=== PATIENT | female | born 1980 | race American Indian/Alaskan Native ===

== ENCOUNTER 2018-12-13 22:37 | Emergency (ER) | payer OTHER ==
[~2018-12-13] VITALS: Ht 157.5 cm; Wt 95.3 kg
[2018-12-13 22:37] VITALS: BP 111/67
--- NOTE | 2018-12-13 22:37 | NUR ---
ARRIVAL PATIENT PRESENTS VIA AMBULANCE WITH COMPLAINTS OF ANXIETY. REPORTS THAT SHE "WOKE UP FROM HER SLEEP" WITH ANXIETY. REPORTS NAUSEA AND GENERALIZED PAIN AT THIS TIME. HX ANXIETY, PANIC ATTACKS AND ALSO REPORTS THAT SHE WAS DIAGNOSED WITH ANKYLOSING SPONDYLITIS TWO WEEKS AGO. PATIENT AAO x4. BREATHING EVEN, UNLABORED. NO SIGNS OF DISTRESS NOTED. VSS. MD NILDA NOTIFIED.
[2018-12-13] MEDS ORDERED: ZOFRAN ODT SL STA (23:24)
--- NOTE | 2018-12-13 23:26 | ER.PDOC ---
General Chief Complaint: General Complaint Stated Complaint: ANXIETY TRAVEL OUT OF US: No Time seen by MD: 23:25 Source: patient Exam Limitations: no limitations History of Present Illness Initial Comments Anxiety and feeling nauseated. Severity: mild Associated Symptoms: denies symptoms Allergies: Uncoded Allergies: STRAWBERRIES (Allergy, Mild, HIVES, 10/26/15) Past Medical History Medical History: other Surgical History: cholecystectomy Social History Smoking: non-smoker Alcohol Use: none Drug Use: none Review of Systems Constitutional: no symptoms reported Respiratory: no symptoms reported Cardiovascular: no symptoms reported Gastrointestinal: no symptoms reported Musculoskeletal: no symptoms reported Psychiatric/Neurological: see HPI All Other Systems: Reviewed and Negative Physical Exam General Appearance: No Apparent Distress, WD/WN Neck: Non-Tender Respiratory: chest non-tender, lungs clear, normal breath sounds CVS: reg rate & rhythm, no murmur, no gallop, pulses nml, nml capillary refill Gastrointestinal: Normal Bowel Sounds, No Organomegaly, No Pulsatile Mass, Non Tender Back: Normal Inspection Extremities: Normal Range of Motion Neurologic/Psychiatric: personal care aide II-XII NML as Tested Results/Orders Results/Orders Orders - MAREK MUNGUIA MD Cbc With Auto Diff (12/13/18 23:24) Basic Metabolic Panel (12/13/18 23:24) Ondansetron (Zofran Odt) (12/13/18 23:24) Ondansetron (Zofran Odt) (12/13/18 23:27) Vital Signs Date Time Temp Pulse Resp B/P (MAP) Pulse Ox O2 Delivery O2 Flow Rate FiO2 12/13/18 22:39 79 18 98 Room Air 12/13/18 22:39 98.0 79 18 12/13/18 22:37 98.0 79 18 111/67 (82) 98 Room Air Administered Medications Medications (Trade) Dose Ordered Sig/Eugene Route PRN Reason Start Time Stop Time Status Last Admin Dose Admin Ondansetron HCl (Zofran Odt) 4 mg STAT STAT SL 12/13/18 23:24 12/13/18 23:25 DC 12/13/18 23:32 4 MG Laboratory Tests Test 12/13/18 23:30 White Blood Count 12.0 10^3/uL (4.5-11.0) H Red Blood Count 4.65 10^6/uL (4.00-5.20) Hemoglobin 13.1 g/dL (12.0-15.0) Hematocrit 38.9 % (36.0-46.0) Mean Corpuscular Volume 83.7 fL (78-100) Mean Corpuscular Hemoglobin 28.2 pg (26-34) Mean Corpuscular Hemoglobin Concent 33.7 g/dL (33-37) Red Cell Distribution Width 14.7 % (11.5-14.5) H Platelet Count 389 10^3/uL (150-400) Mean Platelet Volume 10.0 fL (7.8-11.0) Neutrophils (%) (Auto) 70.5 % (41.0-85.0) Lymphocytes (%) (Auto) 23.1 % (24.0-44.0) L Monocytes (%) (Auto) 5.4 % (5.0-12.0) Neutrophils # (Auto) 8.4 10^3/uL (1.8-7.7) H Lymphocytes # (Auto) 2.8 10^3/uL (1.0-4.8) Monocytes # (Auto) 0.7 10^3/uL (0.3-0.8) Absolute Immature Granulocyte (auto 0.02 10^3 u/L (0-2) Immature Granulocytes % 0.20 % (0.00-0.50) Eosinophils % 0.6 % (0.0-5.0) Basophils % 0.2 % (0.0-0.2) Basophils # 0.0 10^3/uL (0.0-0.1) Eosinophil Count 0.1 10^3/uL (0.0-0.2) Sodium Level 138 mmol/L (132-145) Potassium Level 4.1 mmol/L (3.6-5.2) Chloride Level 104.0 mmol/L (96-109) Carbon Dioxide Level 22.4 mmol/L (20.0-32) Glucose Level 106 mg/dL (70-110) Blood Urea Nitrogen 12 mg/dL (7-18) Creatinine 0.70 mg/dL (0.59-1.40) Calcium Level 9.4 mg/dL (8.4-10.5) Anion Gap 15.7 Estimated GFR () 113.9 (>/=60) BUN/Creatinine Ratio 17.0 Course Sepsis Screening Results: Posi: POSITIVE SEPSIS RISK Duration or Total Time Spent w: 20 Vitals & review Data Vital Sign - Last 24 Hours 12/13/18 12/13/18 12/13/18 22:37 22:39 22:39 Temp 98.0 98.0 Pulse 79 79 79 Resp 18 18 18 B/P (MAP) 111/67 (82) Pulse Ox 98 98 O2 Delivery Room Air Room Air Laboratory Tests Test 12/13/18 23:30 White Blood Count 12.0 10^3/uL Red Blood Count 4.65 10^6/uL Hemoglobin 13.1 g/dL Hematocrit 38.9 % Mean Corpuscular Volume 83.7 fL Mean Corpuscular Hemoglobin 28.2 pg Mean Corpuscular Hemoglobin Concent 33.7 g/dL Red Cell Distribution Width 14.7 % Platelet Count 389 10^3/uL Mean Platelet Volume 10.0 fL Neutrophils (%) (Auto) 70.5 % Lymphocytes (%) (Auto) 23.1 % Monocytes (%) (Auto) 5.4 % Neutrophils # (Auto) 8.4 10^3/uL Lymphocytes # (Auto) 2.8 10^3/uL Monocytes # (Auto) 0.7 10^3/uL Absolute Immature Granulocyte (auto 0.02 10^3 u/L Immature Granulocytes % 0.20 % Eosinophils % 0.6 % Basophils % 0.2 % Basophils # 0.0 10^3/uL Eosinophil Count 0.1 10^3/uL Sodium Level 138 mmol/L Potassium Level 4.1 mmol/L Chloride Level 104.0 mmol/L Carbon Dioxide Level 22.4 mmol/L Glucose Level 106 mg/dL Blood Urea Nitrogen 12 mg/dL Creatinine 0.70 mg/dL Calcium Level 9.4 mg/dL Anion Gap 15.7 Estimated GFR () 113.9 BUN/Creatinine Ratio 17.0 Sepsis Infection Criteria Pres: None O2 Sat by Pulse Oximetry: 98 Departure Time of Disposition: 23:54 Disposition: 01 HOME, SELF-CARE Impression: Primary Impression: Anxiety Condition: Improved Referrals: PCP,UNKNOWN (PCP) PRIMARY CARE PROVIDER Additional Instructions: F/U with your PCP in 2-3 days Duration or Time Spent with Pa: 45 mins MAREK MUNGUIA MD Dec 13, 2018 23:26
[2018-12-13] MEDS ORDERED: ZOFRAN ODT ONE (23:27)
[2018-12-13 23:38] LABS: BASOPHIL % 0.2 % (0.0-0.2); EOSINOPHIL # 0.1 10^3/uL (0.0-0.2); EOSINOPHIL % 0.6 % (0.0-5.0); HEMOGLOBIN 13.1 g/dL (12.0-15.0); LYMPHOCYTES # 2.8 10^3/uL (1.0-4.8); LYMPHOCYTES % 23.1 % (24.0-44.0); MEAN CELL HGB 28.2 pg (26-34); MEAN CELL HGB CONCENTRATION 33.7 g/dL (33-37); MEAN CORP VOLUME 83.7 fL (78-100); MONOCYTES # 0.7 10^3/uL (0.3-0.8); MONOCYTES % 5.4 % (5.0-12.0); NEUTROPHIL # 8.4 10^3/uL (1.8-7.7); NEUTROPHILS % 70.5 % (41.0-85.0); RED CELL DISTRIBUTION WIDTH 14.7 % (11.5-14.5)
[2018-12-13 23:47] LABS: CALCIUM 9.4 mg/dL (8.4-10.5); CARBON DIOXIDE 22.4 mmol/L (20.0-32)
[2018-12-14 00:10] VITALS: BP 118/68
== END 2018-12-14 00:06 | disposition home or self-care (01) ==
LOC: ER 22:37 → EDBD 22:37 → ER 12-14 00:06
DX: F41.9 Anxiety disorder, unspecified (principal); Z90.49 Acquired absence of other specified parts of digestive tract; Z79.899 Other long term (current) drug therapy; Z91.018 Allergy to other foods
CPT/HCPCS: 36415; 80048; 85025; 99284; Q0162

== ENCOUNTER 2019-05-06 08:59 | Emergency (ER) | payer OTHER ==
[~2019-05-06] VITALS: Ht 157.5 cm; Wt 95.3 kg
[2019-05-06 09:23] VITALS: BP 128/80
[2019-05-06 09:24] VITALS: BP 128/80
--- NOTE | 2019-05-06 09:30 | ER.PDOC ---
General Chief Complaint: General Complaint Stated Complaint: RESPIRATORY PROBLEMS TRAVEL OUT OF US: No Time seen by MD: 09:26 Source: patient Exam Limitations: no limitations History of Present Illness Initial Comments SOB only at night while sleeping, lightheaded, dizziness, wakes up many times while asleep for Months worse in the past 3 days. Takes 5mg of Buspar and thinks it is not working. Severity: moderate Associated Symptoms: headaches Allergies: Uncoded Allergies: STRAWBERRIES (Allergy, Mild, HIVES, 10/26/15) Past Medical History Medical History: other (migraine) Surgical History: cholecystectomy Social History Alcohol Use: none Drug Use: none Review of Systems Constitutional: no symptoms reported EENTM: see HPI Respiratory: see HPI Cardiovascular: no symptoms reported Gastrointestinal: no symptoms reported Genitourinary: no symptoms reported Musculoskeletal: no symptoms reported All Other Systems: Reviewed and Negative Physical Exam General Appearance: Anxious EENT: eyes nml inspection, nml ENT inspection, pharynx nml Respiratory: chest non-tender, lungs clear, normal breath sounds, no respiratory distress, no accessory muscle use CVS: reg rate & rhythm, no murmur, no gallop, pulses nml, nml capillary refill Gastrointestinal: Normal Bowel Sounds, No Organomegaly, No Pulsatile Mass, Non Tender Back: Normal Inspection Extremities: Normal Range of Motion Neurologic/Psychiatric: geologic technician II-XII NML as Tested Skin: Normal Color Results/Orders Results/Orders Orders - MAREK MUNGUIA MD Cbc With Auto Diff (05/06/19 09:25) Comprehensive Metabolic Panel (05/06/19 09:25) Creatine Kinase (05/06/19 09:25) Creatine Kinase Mb (05/06/19 09:25) Troponin I (05/06/19 09:25) Probnp B-Type Health Services Manager (05/06/19 09:25) D-Dimer (05/06/19 09:25) Xr Chest 1v (05/06/19 09:25) Ekg-Routine (05/06/19 09:25) Ct Head Wo Contrast (05/06/19 09:25) Ketorolac Tromethamine (Toradol) (05/06/19 09:54) Ketorolac Tromethamine (Toradol) (05/06/19 09:55) Vital Signs Date Time Temp Pulse Resp B/P (MAP) Pulse Ox O2 Delivery O2 Flow Rate FiO2 05/06/19 09:24 98.2 88 20 128/80 (96) 97 Room Air 05/06/19 09:23 98.2 88 20 05/06/19 09:15 98.2 88 20 97 Administered Medications Medications (Trade) Dose Ordered Sig/[place] Route PRN Reason Start Time Stop Time Status Last Admin Dose Admin Ketorolac Tromethamine (Toradol) 60 mg STAT STAT IM 05/06/19 09:54 05/06/19 09:55 DC 05/06/19 09:58 60 MG Laboratory Tests Test 05/06/19 09:32 White Blood Count 9.7 10^3/uL (4.5-11.0) Red Blood Count 4.66 10^6/uL (4.00-5.20) Hemoglobin 13.3 g/dL (12.0-15.0) Hematocrit 39.9 % (36.0-46.0) Mean Corpuscular Volume 85.6 fL (78-100) Mean Corpuscular Hemoglobin 28.5 pg (26-34) Mean Corpuscular Hemoglobin Concent 33.3 g/dL (33-37) Red Cell Distribution Width 14.2 % (11.5-14.5) Platelet Count 408 10^3/uL (150-400) H Mean Platelet Volume 9.5 fL (7.8-11.0) Neutrophils (%) (Auto) 73.2 % (41.0-85.0) Lymphocytes (%) (Auto) 18.4 % (24.0-44.0) L Monocytes (%) (Auto) 5.4 % (5.0-12.0) Neutrophils # (Auto) 7.1 10^3/uL (1.8-7.7) Lymphocytes # (Auto) 1.8 10^3/uL (1.0-4.8) Monocytes # (Auto) 0.5 10^3/uL (0.3-0.8) Absolute Immature Granulocyte (auto 0.03 10^3 u/L (0-2) Absolute Eosinophils (auto) 0.2 10^3/uL (0.0-0.2) Immature Granulocytes % 0.30 % (0.00-0.50) Eosinophils % 2.3 % (0.0-5.0) Basophils % 0.4 % (0.0-0.2) H Basophils # 0.0 10^3/uL (0.0-0.1) D-Dimer 0.83 mg/L (0.19-0.49) *H Sodium Level 140 mmol/L (132-145) Potassium Level 4.0 mmol/L (3.6-5.2) Chloride Level 104.0 mmol/L (96-109) Carbon Dioxide Level 24.8 mmol/L (20.0-32) Anion Gap 15.2 Blood Urea Nitrogen 10 mg/dL (7-18) Creatinine 0.66 mg/dL (0.59-1.40) Estimated GFR () 121.9 (>/=60) BUN/Creatinine Ratio 15.0 Glucose Level 101 mg/dL (70-110) Calcium Level 8.6 mg/dL (8.4-10.5) Total Bilirubin 0.4 mg/dL (0.2-1.0) Aspartate Amino Transferase (AST) 14 U/L (0-35) Alanine Aminotransferase (ALT) 28 U/L (12-78) Alkaline Phosphatase 93 U/L (50-136) Total Creatine Kinase 45 U/L (26-192) Creatine Kinase MB < 0.5 ng/mL (0.5-3.6) L Troponin I < 0.02 ng/mL (0.00-0.05) Pro-B-Type Natriuretic Peptide 34 pg/mL (0-125) Total Protein 7.6 g/dL (6.4-8.2) Albumin 3.6 g/dL (3.4-5.0) Globulin 4.0 Progress Progress Migraine feels better with Toradol shot. EKG/XRAY/CT/US EKG: NSR XRAY: chest (No active disease) CT Comments: No acute intracranial abnormality Course Sepsis Screening Results: Posi: POSITIVE SEPSIS RISK Duration or Total Time Spent w: 45 mins Vitals & review Data Vital Sign - Last 24 Hours 05/06/19 05/06/19 05/06/19 09:15 09:23 09:24 Temp 98.2 98.2 98.2 Pulse 88 88 88 Resp 20 20 20 B/P (MAP) 128/80 (96) Pulse Ox 97 97 O2 Delivery Room Air Laboratory Tests Test 1/1/20 09:32 White Blood Count 9.7 10^3/uL Red Blood Count 4.66 10^6/uL Hemoglobin 13.3 g/dL Hematocrit 39.9 % Mean Corpuscular Volume 85.6 fL Mean Corpuscular Hemoglobin 28.5 pg Mean Corpuscular Hemoglobin Concent 33.3 g/dL Red Cell Distribution Width 14.2 % Platelet Count 408 10^3/uL Mean Platelet Volume 9.5 fL Neutrophils (%) (Auto) 73.2 % Lymphocytes (%) (Auto) 18.4 % Monocytes (%) (Auto) 5.4 % Neutrophils # (Auto) 7.1 10^3/uL Lymphocytes # (Auto) 1.8 10^3/uL Monocytes # (Auto) 0.5 10^3/uL Absolute Immature Granulocyte (auto 0.03 10^3 u/L Absolute Eosinophils (auto) 0.2 10^3/uL Immature Granulocytes % 0.30 % Eosinophils % 2.3 % Basophils % 0.4 % Basophils # 0.0 10^3/uL D-Dimer 0.83 mg/L Sodium Level 140 mmol/L Potassium Level 4.0 mmol/L Chloride Level 104.0 mmol/L Carbon Dioxide Level 24.8 mmol/L Anion Gap 15.2 Blood Urea Nitrogen 10 mg/dL Creatinine 0.66 mg/dL Estimated GFR () 121.9 BUN/Creatinine Ratio 15.0 Glucose Level 101 mg/dL Calcium Level 8.6 mg/dL Total Bilirubin 0.4 mg/dL Aspartate Amino Transf (AST/SGOT) 14 U/L Alanine Aminotransferase (ALT/SGPT) 28 U/L Alkaline Phosphatase 93 U/L Total Creatine Kinase 45 U/L Creatine Kinase MB < 0.5 ng/mL Troponin I < 0.02 ng/mL Pro-B-Type Natriuretic Peptide 34 pg/mL Total Protein 7.6 g/dL Albumin 3.6 g/dL Globulin 4.0 Sepsis Infection Criteria Pres: None O2 Sat by Pulse Oximetry: 97 Departure Time of Disposition: 11:09 Disposition: 01 HOME, SELF-CARE Impression: Primary Impression: Anxiety Additional Impression: Migraine Condition: Stable Referrals: PCP,UNKNOWN (PCP) PRIMARY CARE PROVIDER Additional Instructions: Increase Buspirone to 10mg F/U with your PCP tomorrow Return to ED if worsening symptoms or concerns. Duration or Time Spent with Pa: 45 mind Problem Qualifiers Additional Impression: Migraine Migraine type: unspecified Status migrainosus presence: with status migrainosus Intractability: intractable Qualified Codes: G43.911 - Migraine, unspecified, intractable, with status migrainosus MAREK MUNGUIA MD May 06, 2019 09:30
[2019-05-06 09:37] LABS: BASOPHIL % 0.4 % (0.0-0.2); EOSINOPHIL # 0.2 10^3/uL (0.0-0.2); EOSINOPHIL % 2.3 % (0.0-5.0); LYMPHOCYTES # 1.8 10^3/uL (1.0-4.8); LYMPHOCYTES % 18.4 % (24.0-44.0); MEAN CORP HGB 28.5 pg (26-34); MONOCYTES # 0.5 10^3/uL (0.3-0.8); MONOCYTES % 5.4 % (5.0-12.0); NEUTROPHIL # 7.1 10^3/uL (1.8-7.7); NEUTROPHILS % 73.2 % (41.0-85.0); RED CELL DISTRIBUTION WIDTH 14.2 % (11.5-14.5)
--- NOTE | 2019-05-06 09:51 | NUR ---
CRITICAL LAB D-DIMER-0.83. REPORTED TO DR. JARA
[2019-05-06] MEDS ORDERED: TORADOL IM STA (09:54)
--- NOTE | 2019-05-06 09:54 | PCM.EKG ---
[facility] Test Date: 2019-05-06 Test Time: 09:50:54 Pat Name: KATY ACHARYA Department: Room: Gender: F Geriatrician: ELIO : 1980 Requested By: MAREK MUNGUIA Order Number: [id number] Reading MD: Marek MUNGUIA Measurements Intervals [place] Rate: 80 P: 70 [place]: 161 QRS: 72 QRSD: 100 T: 63 QT: 383 QTc: 442 Interpretive Statements Sinus rhythm RSR' in V1 or V2, right VCD or RVH Compared to ECG 06/30/2018 17:52:38 Right ventricular hypertrophy now present RSR' in V1 or V2 now present Electronically Signed On 05-07-2019 5:17:10 PALS SPECIALIST by Marek MUNGUIA Please click the below link to view image of tracing.
[2019-05-06] MEDS ORDERED: TORADOL ONE (09:55)
[2019-05-06 10:04] LABS: ALANINE AMINOTRANSFERASE(ML) 28 U/L (12-78); ALKALINE PHOSPHATASE 93 U/L (50-136); ASPARTATE AMINO TRANSFERASE 14 U/L (0-35); CALCIUM 8.6 mg/dL (8.4-10.5); CARBON DIOXIDE 24.8 mmol/L (20.0-32); GLUCOSE 101 mg/dL (70-110)
--- NOTE | 2019-05-06 10:05 | DIREP ---
PROCEDURE:CT HEAD OR BRAIN W/O CONTRAST COMPARISON:None. INDICATIONS:Dizziness TECHNIQUE:CT images were created without intravenous contrast. FINDINGS: VENTRICLES: Negative. CEREBRUM: Negative. CEREBELLUM: Negative. BRAINSTEM: Negative. BASAL CISTERNS: Negative. SKULL: Negative. SINUSES: Negative. OTHER: None. CONCLUSION: 1. There is no CT evidence of intracranial mass, hemorrhage, or acute infarct. Dictated by: Amaury Simons M.D. on 05/06/2019 at 10:03 AM
--- NOTE | 2019-05-06 10:25 | DIREP ---
PROCEDURE:CHEST 1 VIEW COMPARISON:CR, CHEST 2 VIEW, 07/29/2011, 03:47 AM. INDICATIONS:SOB FINDINGS: LUNGS/PLEURA:Lungs are clear of focal consolidation. No evidence of pleural effusion. VASCULATURE:Unremarkable pulmonary vasculature. CARDIAC:No cardiac silhouette abnormality or cardiomegaly. WANDA/MEDIASTINUM:No visible mass or adenopathy. BONES:No acute fracture. OTHER:No additional findings. CONCLUSION: 1. No acute cardiopulmonary changes. Dictated by: Amaury Simons M.D. on 05/06/2019 at 10:23 AM
[2019-05-06 10:30] VITALS: BP 130/84
[2019-05-06 11:15] VITALS: BP 118/80
== END 2019-05-06 11:19 | disposition home or self-care (01) ==
LOC: ER 08:59
DX: G43.911 Migraine, unspecified, intractable, with status migrainosus (principal); F41.9 Anxiety disorder, unspecified; Z79.1 Long term (current) use of non-steroidal anti-inflammatories (NSAID); Z90.49 Acquired absence of other specified parts of digestive tract
CPT/HCPCS: 36415; 70450; 71045; 80053; 82550; 82553; 83880; 84484; 85025; 85379; 93005; 96372; 99285; J1885

== ENCOUNTER 2019-05-26 15:04 | Emergency (ER) | payer OTHER ==
[~2019-05-26] VITALS: Ht 157.5 cm; Wt 93.0 kg
[2019-05-26 15:09] VITALS: BP 123/73
--- NOTE | 2019-05-26 16:04 | ER.PDOC ---
General Chief Complaint: Syncope Stated Complaint: DIZZINESS,PASSED OUT Time seen by MD: 15:56 Source: patient Exam Limitations: no limitations History of Present Illness Initial Comments Dizziness and feeling shaky in her whole body on and off for for 3 Months. No chest pain or SOB. Patient says she passed out at home earlier today. She drove herself to the ED. Her PCP told her that she will switch her Buspirone to Zoloft because it does not seem to be working. Timing/Prior Episodes: single episode today Symptoms Prior to Episode: none Precipitating Factors: sitting Loss of Consciousness: No Loss of Consciousness Location of Injury: None Current Symptoms: dizziness Prior symptoms/Treatment: Similar symptoms previous Allergies: Uncoded Allergies: STRAWBERRIES (Allergy, Mild, HIVES, 10/26/15) Home Meds Reported Medications Metoprolol Succinate (METOPROLOL SUCCINATE) 25 Mg Tab.er.24h, 0.5 TAB PO DAILY, #30 TAB 5 Refills 05/26/19 Past Medical History Medical History: other Surgical History: cholecystectomy Social History Alcohol Use: none Drug Use: none Review of Systems Constitutional: no symptoms reported EENTM: no symptoms reported Respiratory: no symptoms reported Cardiovascular: no symptoms reported Gastrointestinal: no symptoms reported Psychiatric/Neurological: see HPI All Other Systems: Reviewed and Negative Physical Exam General Appearance: No Apparent Distress, Anxious HEENT: PERRL/EOMI Neck: Non-Tender, Full Range of Motion, Supple, Normal Inspection Cardiovascular/Respiratory: Regular Rate, Rhythm, No M/R/G, Normal Peripheral Pulses, No JVD, Normal Breath Sounds, No Respiratory Distress Gastrointestinal: Normal Bowel Sounds, No Organomegaly, No Pulsatile Mass, Non Tender, Soft Extremities: Normal Range of Motion, Non-Tender, Normal Inspection, No Pedal Edema, No Calf Tenderness, Normal Capillary Refill Psychiatric: Alert, Oriented x 3 Cranial Nerves: Normal Hearing, Normal Speech, PERRL Motor/Sensory: No Motor Deficit, No Sensory Deficit, No Pronator Drift, Negative Babinski's Sign Skin: Normal Color, Warm/Dry Results/Orders Results/Orders Orders - MAREK MUNGUIA MD Cbc With Auto Diff (05/26/19 15:54) Comprehensive Metabolic Panel (05/26/19 15:54) Creatine Kinase (05/26/19 15:54) Xr Chest 1v (05/26/19 15:54) Ct Head Wo Contrast (05/26/19 15:54) Urinalysis (05/26/19 15:54) Ekg-Routine (05/26/19 15:54) Troponin I (05/26/19 15:54) Hcg Urine (05/26/19 16:16) Drug Scrn Med W Confirmation (05/26/19 16:16) Bedside Glucose (05/26/19 16:24) Vital Signs Date Time Temp Pulse Resp B/P (MAP) Pulse Ox O2 Delivery O2 Flow Rate FiO2 05/26/19 15:09 98.8 89 23 05/26/19 15:09 98.8 89 23 99 Laboratory Tests Test 05/26/19 15:30 05/26/19 16:07 05/26/19 16:16 05/26/19 16:24 White Blood Count 11.6 10^3/uL (4.5-11.0) H Red Blood Count 4.48 10^6/uL (4.00-5.20) Hemoglobin 12.6 g/dL (12.0-15.0) Hematocrit 37.6 % (36.0-46.0) Mean Corpuscular Volume 83.9 fL (78-100) Mean Corpuscular Hemoglobin 28.1 pg (26-34) Mean Corpuscular Hemoglobin Concent 33.5 g/dL (33-36.5) Red Cell Distribution Width 13.8 % (11.5-14.5) Platelet Count 432 10^3/uL (150-400) H Mean Platelet Volume 9.9 fL (7.8-11.0) Neutrophils (%) (Auto) 70.6 % (41.0-85.0) Lymphocytes (%) (Auto) 24.7 % (24.0-44.0) Monocytes (%) (Auto) 4.0 % (5.0-12.0) L Neutrophils # (Auto) 8.2 10^3/uL (1.8-7.7) H Lymphocytes # (Auto) 2.86 10^3/uL1 (1.0-4.8) Monocytes # (Auto) 0.5 10^3/uL (0.3-0.8) Absolute Immature Granulocyte (auto 0.02 10^3 u/L (0-2) Absolute Eosinophils (auto) 0.0 10^3/uL (0.0-0.2) Immature Granulocytes % 0.20 % (0.00-0.50) Eosinophils % 0.3 % (0.0-5.0) Basophils % 0.2 % (0.0-0.2) Basophils # 0.0 10^3/uL (0.0-0.1) Sodium Level 128 mmol/L (132-145) #L Potassium Level 3.6 mmol/L (3.6-5.2) Chloride Level 95.0 mmol/L (96-109) L Carbon Dioxide Level 23.7 mmol/L (20.0-32) Anion Gap 12.9 Blood Urea Nitrogen 9 mg/dL (7-18) Creatinine 0.74 mg/dL (0.59-1.40) Estimated GFR () 106.9 (>/=60) Est GFR (CKD-EPI)(Non-Afr Pakistani) 88.3 (>/=60) BUN/Creatinine Ratio 12.0 Glucose Level 91 mg/dL (70-110) Calcium Level 8.3 mg/dL (8.4-10.5) L Total Bilirubin 0.3 mg/dL (0.2-1.0) Aspartate Amino Transferase (AST) 6 U/L (0-35) Alanine Aminotransferase (ALT) 28 U/L (12-78) Alkaline Phosphatase 78 U/L (50-136) Total Creatine Kinase 76 U/L (26-192) Troponin I < 0.02 ng/mL (0.00-0.05) Total Protein 7.6 g/dL (6.4-8.2) Albumin 3.6 g/dL (3.4-5.0) Globulin 4.0 Urine Collection Type VOID Urine Color YELLOW (YELLOW) Urine Appearance CLEAR (CLEAR) Urine Bilirubin NEGATIVE MG/DL (NEGATIVE) Urine Ketones 5 mg/dL (NEGATIVE) H Urine Specific [place] 1.000 (1.005-1.035) Urine pH 6.5 (5.0-6.0) Urine Protein NEGATIVE (NEGATIVE) Urine Urobilinogen NORMAL (NEGATIVE) Urine Nitrate NEGATIVE (NEGATIVE) Urine Leukocyte Esterase NEGATIVE (NEGATIVE) Urine Blood NEGATIVE (NEGATIVE) Urine Glucose NORMAL (NEGATIVE) Urine HCG, Qualitative NEGATIVE (NEGATIVE) Urine Opiates Screen NEGATIVE (c/o300ng/mL) Urine Methadone Screen NEGATIVE (c/o300ng/mL) Urine Barbiturates Screen NEGATIVE (c/o200ng/mL) Urine Phencyclidine Screen NEGATIVE (c/o 25ng/mL) Ur Amphetamine/Methamphetamine NEGATIVE (la3015zy/mL) Urine MDMA Screen (Ecstasy) NEGATIVE (c/o300ng/mL) Urine Benzodiazepines Screen NEGATIVE (c/o200ng/mL) Urine Cocaine Metabolite Screen NEGATIVE (c/o300ng/mL) Ur Tetrahydrocannabinol (THC) Scrn NEGATIVE (c/o 50ng/mL) POC Glucose 95 (70 - 110) Progress Progress Discussed results with the patient. She has been drinking a lot of water. I told her to decrease fluid intake to build up her Sodium. She has an appointment with her PCP tomorrow. Departure Time of Disposition: 16:59 Disposition: 01 HOME, SELF-CARE Impression: Primary Impression: Anxiety Additional Impressions: Syncope and collapse Hyponatremia Condition: Stable Referrals: PCP,UNKNOWN (PCP) PRIMARY CARE PROVIDER Additional Instructions: Decrease your consumption of water to build up your Sodium F/U with your PCP tomorrow as scheduled and keep to your appointment Return to ED if worsening symptoms or concerns. Duration or Time Spent with Pa: 60 mins Problem Qualifiers MAREK MUNGUIA MD May 26, 2019 16:04
[2019-05-26 16:06] LABS: BASOPHIL % 0.2 % (0.0-0.2); EOSINOPHIL % 0.3 % (0.0-5.0); LYMPHOCYTES # 2.86 10^3/uL1 (1.0-4.8); LYMPHOCYTES % 24.7 % (24.0-44.0); MEAN CORP HGB 28.1 pg (26-34); MONOCYTES # 0.5 10^3/uL (0.3-0.8); NEUTROPHIL # 8.2 10^3/uL (1.8-7.7); NEUTROPHILS % 70.6 % (41.0-85.0); RED CELL DISTRIBUTION WIDTH 13.8 % (11.5-14.5)
[2019-05-26 16:16] LABS: BILIRUBIN,URINE NEGATIVE (NEGATIVE); UROBILINOGEN,URINE NORMAL (NEGATIVE)
[2019-05-26 16:22] LABS: APPEARANCE,URINE CLEAR (CLEAR); UA COLOR YELLOW (YELLOW)
--- NOTE | 2019-05-26 16:22 | PCM.EKG ---
[facility] Test Date: 2019-05-26 Test Time: 16:17:58 Pat Name: KATY ACHARYA Department: Room: Gender: F Coil Tester: ELIO : 1980 Requested By: MAREK MUNGUIA Order Number: [id number] Reading MD: Marek MUNGUIA Measurements Intervals [place] Rate: 77 P: 59 [place]: 167 QRS: 100 QRSD: 98 T: 59 QT: 373 QTc: 423 Interpretive Statements Sinus rhythm Consider right ventricular hypertrophy Baseline wander in lead(s) I,II,aVR Compared to ECG 05/06/2019 09:50:54 No significant changes Electronically Signed On 05-26-2019 23:22:27 FRENCH EDGE OPERATOR by Marek MUNGUIA Please click the below link to view image of tracing.
--- NOTE | 2019-05-26 16:22 | DIREP ---
PROCEDURE:CHEST 1 VIEW COMPARISON:None. INDICATIONS:Syncope FINDINGS: LUNGS/PLEURA:No significant pulmonary parenchymal abnormalities. No effusions. VASCULATURE:Normal. Unremarkable pulmonary vasculature. CARDIAC:Normal. No cardiac silhouette abnormality or cardiomegaly. MEDIASTINUM:Normal. No visible mass or adenopathy. BONES:Normal. No fracture or visible bony lesion. OTHER:Negative. CONCLUSION:Normal examination. Dictated by: Aly Garcia M.D. on 05/26/2019 at 04:20 PM
--- NOTE | 2019-05-26 16:23 | DIREP ---
PROCEDURE:CT HEAD OR BRAIN W/O CONTRAST COMPARISON:[facility], CT, CT HEAD BRAIN W/O CONTRAST, 05/06/2019, 09:40 AM. INDICATIONS:Syncope TECHNIQUE:CT images were created without intravenous contrast. FINDINGS: VENTRICLES:The ventricles are normal in size and configuration. CEREBRUM:Normal cerebral morphology with appropriate hooker white matter differentiation. CEREBELLUM:Negative. BRAINSTEM:Negative. BASAL CISTERNS:Negative. HEMORRHAGE:No MASS LESION:No ACUTE INFARCT:No SKULL:Normal. SINUSES:Normal. OTHER:None CONCLUSION:Normal examination. Dictated by: Aly Garcia M.D. on 05/26/2019 at 04:21 PM
[2019-05-26 16:26] LABS: ALANINE AMINOTRANSFERASE(ML) 28 U/L (12-78); ALKALINE PHOSPHATASE 78 U/L (50-136); ASPARTATE AMINO TRANSFERASE 6 U/L (0-35); CALCIUM 8.3 mg/dL (8.4-10.5); CARBON DIOXIDE 23.7 mmol/L (20.0-32); GLUCOSE 91 mg/dL (70-110)
[2019-05-26] MEDS ORDERED: METO-236 PO (16:31)
[2019-05-26 16:41] LABS: HCG URINE PREGNANCY NEGATIVE (NEGATIVE)
== END 2019-05-26 17:15 | disposition home or self-care (01) ==
LOC: ER 15:04
DX: F41.9 Anxiety disorder, unspecified (principal); E87.1 Hypo-osmolality and hyponatremia; R55 Syncope and collapse; Z79.899 Other long term (current) drug therapy; Z90.49 Acquired absence of other specified parts of digestive tract
CPT/HCPCS: 36415; 70450; 71045; 80053; 80307; 81002; 81025; 82550; 82948; 84484; 85025; 93005; 99285

== ENCOUNTER 2019-10-08 11:05 | Emergency (ER) | payer OTHER ==
[~2019-10-08] VITALS: Ht 157.5 cm; Wt 102.1 kg
[~2019-10-08 11:05] MED LIST: METO-236 PO
[2019-10-08 11:20] VITALS: BP 130/81
[2019-10-08 11:24] VITALS: BP 130/81
--- NOTE | 2019-10-08 11:25 | NUR ---
ARRIVAL PATIENT ARRIVED TO ED5 AMBULATORY, C/O OF CHEST TENDERNESS TODAY, PATIENT HAS A HISTORY OF TACHYCARDIA AND BECAME WORRIED, SPOKE WITH FRIENDS WHO ARE NURSES AND WAS TOLD SHE NEEDED TO COME TO THE ED FOR EVAL.
--- NOTE | 2019-10-08 11:33 | ER.PDOC ---
General Chief Complaint: Chest Pain-Cardiac Nature Stated Complaint: CHEST PAINS Time seen by MD: 11:33 Source: patient Exam Limitations: no limitations History of Present Illness Severity/Quality: mild Radiation: no radiation Activities at Onset: rest Prior CP/Workup: No Prior Chest Pain, No Prior Cardiac Workup Nitro Today/Relief: No Nitro Taken Today Associated Symptoms: denies symptoms Allergies: Uncoded Allergies: STRAWBERRIES (Allergy, Mild, HIVES, 10/26/15) Home Meds Reported Medications Metoprolol Succinate (METOPROLOL SUCCINATE) 25 Mg Tab.er.24h, 0.5 TAB PO DAILY, #30 TAB 5 Refills 05/26/19 Past Medical History Medical History: other Surgical History: cholecystectomy, Social History Alcohol Use: none Drug Use: none Reviewed Nursing Reviewed: Vital Signs, Abn. Noted All Other Systems: Reviewed and Negative Physical Exam General Appearance: No Apparent Distress, WD/WN HEENT: PERRL/EOMI, Normal ENT Inspection, TMs Normal, Pharynx Normal Neck: Non-Tender, Full Range of Motion, Supple, Normal Inspection Respiratory: normal breath sounds, no respiratory distress, no accessory muscle use, other Cardiovascular: Normal Peripheral Pulses, Regular Rate, Rhythm, No Edema, No Gallop, No JVD, No Murmur Gastrointestinal: Normal Bowel Sounds, No Organomegaly, No Pulsatile Mass, Non Tender, Soft Extremities: Normal Range of Motion, Non-Tender, Normal Inspection, No Pedal Edema, No Calf Tenderness, Normal Capillary Refill 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 (10/08/19 11:34) Helicobacter Pylori (10/08/19 11:34) D-Dimer (10/08/19 11:34) Xr Chest 1v (10/08/19 11:34) Ekg-Routine (10/08/19 11:34) Prednisone (Prednisone) (10/08/19 11:34) Ketorolac Tromethamine (Toradol) (10/08/19 11:34) Ketorolac Tromethamine (Toradol) (10/08/19 11:42) Prednisone (Prednisone) (10/08/19 11:42) Vital Signs Date Time Temp Pulse Resp B/P (MAP) Pulse Ox O2 Delivery O2 Flow Rate FiO2 10/08/19 12:10 98.4 77 16 96 Room Air 10/08/19 11:24 98.4 88 16 96 Room Air 10/08/19 11:20 98.4 88 16 10/08/19 11:20 98.4 88 16 96 Administered Medications Medications (Trade) Dose Ordered Sig/Eugene Route PRN Reason Start Time Stop Time Status Last Admin Dose Admin Ketorolac Tromethamine (Toradol) 30 mg STAT STAT IV 10/08/19 11:34 10/08/19 11:37 DC 10/08/19 11:47 30 MG Prednisone (Prednisone) 40 mg STAT STAT PO 10/08/19 11:34 10/08/19 11:37 DC 10/08/19 11:47 40 MG Laboratory Tests Test 10/08/19 11:18 White Blood Count 10.0 10^3/uL (4.5-11.0) Red Blood Count 4.72 10^6/uL (4.00-5.20) Hemoglobin 13.3 g/dL (12.0-15.0) Hematocrit 39.9 % (36.0-46.0) Mean Corpuscular Volume 84.5 fL (78-100) Mean Corpuscular Hemoglobin 28.2 pg (26-34) Mean Corpuscular Hemoglobin Concent 33.3 g/dL (33-36.5) Red Cell Distribution Width 14.3 % (11.5-14.5) Platelet Count 418 10^3/uL (150-400) H Mean Platelet Volume 9.8 fL (7.8-11.0) Neutrophils (%) (Auto) 66.8 % (41.0-85.0) Lymphocytes (%) (Auto) 27.2 % (24.0-44.0) Monocytes (%) (Auto) 3.8 % (5.0-12.0) L Neutrophils # (Auto) 6.7 10^3/uL (1.8-7.7) Lymphocytes # (Auto) 2.73 10^3/uL1 (1.0-4.8) Monocytes # (Auto) 0.4 10^3/uL (0.3-0.8) Absolute Immature Granulocyte (auto 0.02 10^3 u/L (0-2) Absolute Eosinophils (auto) 0.2 10^3/uL (0.0-0.2) Immature Granulocytes % 0.20 % (0.00-0.50) Eosinophils % 1.8 % (0.0-5.0) Basophils % 0.2 % (0.0-0.2) Basophils # 0.0 10^3/uL (0.0-0.1) Prothrombin Time 9.7 SEC (9.3-11.3) Prothrombin Time INR (Non-Therap) 1.0 Activated Partial Thromboplast Time 22.1 SEC (24.67-30.72) D-Dimer 0.85 mg/L (0.19-0.49) *H Sodium Level 137 mmol/L (132-145) Potassium Level 3.6 mmol/L (3.6-5.2) Chloride Level 103.0 mmol/L (96-109) Carbon Dioxide Level 23.3 mmol/L (20.0-32) Anion Gap 14.3 Blood Urea Nitrogen 14 mg/dL (7-18) Creatinine 0.78 mg/dL (0.59-1.40) Estimated GFR () 100.0 (>/=60) Est GFR (CKD-EPI)(Non-Afr Azerbaijani) 82.7 (>/=60) BUN/Creatinine Ratio 17.0 Glucose Level 164 mg/dL (70-110) H Calcium Level 8.5 mg/dL (8.4-10.5) Total Bilirubin 0.3 mg/dL (0.2-1.0) Aspartate Amino Transferase (AST) 25 U/L (0-35) Alanine Aminotransferase (ALT) 41 U/L (12-78) Alkaline Phosphatase 74 U/L (50-136) Total Creatine Kinase 42 U/L (26-192) Creatine Kinase MB < 0.5 ng/mL (0.5-3.6) L Troponin I < 0.02 ng/mL (0.00-0.05) Pro-B-Type Natriuretic Peptide 9 pg/mL (0-125) Total Protein 7.4 g/dL (6.4-8.2) Albumin 3.1 g/dL (3.4-5.0) L Globulin 4.3 Helicobacter pylori Screen NEGATIVE (NEGATIVE) EKG/XRAY/CT/US EKG: NSR, no ST T wave changes XRAY: chest Departure Time of Disposition: 13:00 Disposition: 01 HOME, SELF-CARE Impression: Primary Impression: Pleurisy Condition: Improved Referrals: PCP,UNKNOWN (PCP) PRIMARY CARE PROVIDER Duration or Time Spent with Pa: 20 m RADHA ACUNA MD Oct 08, 2019 11:33
[2019-10-08] MEDS ORDERED: PREDNISONE PO STA (11:34)
[2019-10-08] MEDS ORDERED: TORADOL IV STA (11:34)
[2019-10-08] MEDS ORDERED: PREDNISONE ONE (11:42)
[2019-10-08] MEDS ORDERED: TORADOL ONE (11:42)
--- NOTE | 2019-10-08 11:44 | PCM.EKG ---
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
[2019-10-08 11:51] LABS: BASOPHIL % 0.2 % (0.0-0.2); EOSINOPHIL # 0.2 10^3/uL (0.0-0.2); EOSINOPHIL % 1.8 % (0.0-5.0); LYMPHOCYTES # 2.73 10^3/uL1 (1.0-4.8); LYMPHOCYTES % 27.2 % (24.0-44.0); MEAN CORP HGB 28.2 pg (26-34); MONOCYTES # 0.4 10^3/uL (0.3-0.8); MONOCYTES % 3.8 % (5.0-12.0); NEUTROPHIL # 6.7 10^3/uL (1.8-7.7); NEUTROPHILS % 66.8 % (41.0-85.0); PLATELET COUNT 418 10^3/uL (150-400); RED CELL DISTRIBUTION WIDTH 14.3 % (11.5-14.5)
[2019-10-08 12:10] VITALS: BP 121/78
[2019-10-08 12:19] LABS: ALANINE AMINOTRANSFERASE(ML) 41 U/L (12-78); ALKALINE PHOSPHATASE 74 U/L (50-136); ASPARTATE AMINO TRANSFERASE 25 U/L (0-35); CALCIUM 8.5 mg/dL (8.4-10.5); CARBON DIOXIDE 23.3 mmol/L (20.0-32); GLUCOSE 164 mg/dL (70-110)
--- NOTE | 2019-10-08 12:35 | DIREP ---
PROCEDURE:CHEST 1 VIEW COMPARISON:[facility], CR, XRAY CHEST SINGLE VW, 05/26/2019, 04:07 PM. INDICATIONS:PLEURITIC CHEST PAIN FINDINGS: LUNGS/PLEURA:No significant pulmonary parenchymal abnormalities. No effusions. VASCULATURE:Normal. Unremarkable pulmonary vasculature. CARDIAC:Normal. No cardiac silhouette abnormality or cardiomegaly. MEDIASTINUM:Normal. No visible mass or adenopathy. BONES:Normal. No fracture or visible bony lesion. OTHER:Monitor leads in place. CONCLUSION:Normal chest examination. No change from previous study. Dictated by: Eusebio Del Rio M.D. on 10/08/2019 at 12:33 PM
[2019-10-08 12:48] VITALS: BP 114/68
== END 2019-10-08 12:53 | disposition home or self-care (01) ==
LOC: ER 11:05
DX: R09.1 Pleurisy (principal); Z79.1 Long term (current) use of non-steroidal anti-inflammatories (NSAID); Z79.899 Other long term (current) drug therapy; Z90.49 Acquired absence of other specified parts of digestive tract
CPT/HCPCS: 36415; 71045; 80053; 82550; 82553; 83880; 84484; 85025; 85379; 85610; 85730; 86677; 93005; 96374; 99285; J1885; J7512

== ENCOUNTER 2021-02-13 17:43 | Emergency (ER) | payer OTHER ==
[~2021-02-13] VITALS: Ht 157.5 cm; Wt 104.3 kg
[2021-02-13 19:00] VITALS: BP 115/75
--- NOTE | 2021-02-13 19:00 | NUR ---
Patient arrived to ED via private vehicle with complaint of RUQ abdominal pain onset SaturdayFeb 08, patient denies any nausea or emesis, denies fever, LBM 02/13/21, LMP Mid-january. Patient is awake, alert and oriented x4, no acute distress noted, denies any allergies to food or medications, history of Depression, COVID and Post Orthostatic tachycardia syndrome.
[2021-02-13 20:00] VITALS: BP 127/79
[2021-02-13 20:16] LABS: BASOPHIL % 0.3 % (0.0-0.2); EOSINOPHIL # 0.2 10^3/uL (0.0-0.2); EOSINOPHIL % 1.1 % (0.0-5.0); LYMPHOCYTES # 3.61 10^3/uL1 (1.0-4.8); LYMPHOCYTES % 27.2 % (24.0-44.0); MEAN CORP HGB 27.8 pg (26-34); MONOCYTES # 0.6 10^3/uL (0.3-0.8); MONOCYTES % 4.8 % (5.0-12.0); NEUTROPHIL # 8.8 10^3/uL (1.8-7.7); NEUTROPHILS % 66.4 % (41.0-85.0); PLATELET COUNT 345 10^3/uL (150-400); RED CELL DISTRIBUTION WIDTH 13.6 % (11.5-14.5)
[2021-02-13 20:38] LABS: CALCIUM 8.7 mg/dL (8.4-10.5); CARBON DIOXIDE 27.8 mmol/L (20.0-32)
[2021-02-13] MEDS ORDERED: TORADOL ONE (20:42)
[2021-02-13] MEDS: TORADOL IV STA (20:49)
[2021-02-13 21:00] VITALS: BP 130/75
[2021-02-13 22:00] VITALS: BP 129/77
[2021-02-13 22:36] LABS: BILIRUBIN,URINE NEGATIVE (NEGATIVE)
[2021-02-13 22:37] LABS: UROBILINOGEN,URINE 0.2 E.U./dL (0.2)
--- NOTE | 2021-02-13 22:38 | ER.PDOC ---
General Chief Complaint: Abdomen Pain Stated Complaint: PAIN ON RIGHT SIDE Time seen by MD: 20:22 Source: patient Exam Limitations: no limitations History of Present Illness Initial Comments Patient presents with complaint of right upper quadrant abdominal pain for 4 days. She states is throbbing and appears to worsen with moving around and af ter eating. Patient has had a gallbladder removed and a history of . She denies any dysuria or back pain. She does endorse a decreased appetite. Her last meal was at approximately 5 PM her last bowel movement was at 12:30 PM. She states the pain is intermittent but when it occurs it can last for hours and when it goes away it can go away for several hours as well. Allergies: Uncoded Allergies: STRAWBERRIES (Allergy, Mild, HIVES, 10/26/15) Home Meds Reported Medications Metoprolol Succinate (METOPROLOL SUCCINATE) 25 Mg Tab.er.24h, 0.5 TAB PO DAILY, #30 TAB 5 Refills 05/26/19 Vital Signs First Vital Signs Date Time Temp Pulse Resp B/P (MAP) Pulse Ox O2 Delivery O2 Flow Rate FiO2 02/13/21 19:00 98.5 95 17 115/75 (88) 97 Room Air Last Vital Signs Date Time Temp Pulse Resp B/P (MAP) Pulse Ox O2 Delivery O2 Flow Rate FiO2 02/14/21 00:39 78 17 114/72 (86) 93 Room Air 02/13/21 22:00 98.5 Past Medical History Medical History: other Surgical History: Social History Alcohol Use: none Drug Use: none Constitutional: no symptoms reported EENTM: no symptoms reported Respiratory: no symptoms reported Cardiovascular: no symptoms reported Gastrointestinal: abdominal pain Genitourinary: no symptoms reported Musculoskeletal: no symptoms reported Skin: no symptoms reported Psychiatric/Neurological: no symptoms reported Physical Exam General Appearance: Mild Distress HEENT: Normal ENT Inspection Neck: Full Range of Motion, Supple Respiratory: no respiratory distress, no accessory muscle use Cardiovascular: Normal Peripheral Pulses, Regular Rate, Rhythm 1 - area of mod ttp. 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, No Motor/Sensory Deficits, Al ert, Normal Mood/Affect, Oriented x 3 Skin: Normal Color, Warm/Dry Results/Orders Results/Orders Orders - SANTI CHAND MD Hcg Qualitative Serum (02/13/21 20:18) Ketorolac Tromethamine (Toradol) (02/13/21 20:39) Ketorolac Tromethamine (Toradol) (02/13/21 20:42) Ct Abd/Pel With Iv Contrast (02/13/21 21:54) Us Pelvic Non Ob (02/13/21 22:54) Us Tv-Vp Construction (02/14/21 00:02) Vital Signs Date Time Temp Pulse Resp B/P (MAP) Pulse Ox O2 Delivery O2 Flow Rate FiO2 02/14/21 00:39 78 17 114/72 (86) 93 Room Air 02/13/21 22:00 98.5 84 18 129/77 (94) 97 Room Air 02/13/21 21:00 98.5 83 18 130/75 (93) 94 Room Air 02/13/21 20:00 98.5 86 18 127/79 (95) 94 Room Air 02/13/21 19:00 98.4 92 17 97 02/13/21 19:00 98.4 92 17 02/13/21 19:00 98.5 95 17 115/75 (88) 97 Room Air Administered Medications Medications (Trade) Dose Ordered Sig/Eugene Route PRN Reason Start Time Stop Time Status Last Admin Dose Admin Ketorolac Tromethamine (Toradol) 15 mg OT STAT IV 02/13/21 20:39 02/13/21 20:40 DC 02/13/21 20:49 15 MG Laboratory Tests Test 02/13/21 20:07 02/13/21 20:11 Urine Collection Type UNKNOWN Urine Color YELLOW Urine Appearance CLEAR Urine Bilirubin NEGATIVE (NEGATIVE) Urine Ketones NEGATIVE (NEGATIVE) Urine Specific [place] 1.025 (1.005-1.030) Urine pH 6.0 (4.5-8.0) Urine Protein NEGATIVE (NEGATIVE) Urine Urobilinogen 0.2 E.U./dL (0.2) Urine Nitrate NEGATIVE (NEGATIVE) Urine Leukocyte Esterase NEGATIVE (NEGATIVE) Urine Glucose (Auto)(UA) NEGATIVE (NEGATIVE) Urine Blood NEGATIVE (NEGATIVE) White Blood Count 13.3 10^3/uL (4.5-11.0) H Red Blood Count 4.61 10^6/uL (4.00-5.20) Hemoglobin 12.8 g/dL (12.0-15.0) Hematocrit 40.2 % (36.0-46.0) Mean Corpuscular Volume 87.2 fL (78-100) Mean Corpuscular Hemoglobin 27.8 pg (26-34) Mean Corpuscular Hemoglobin Concent 31.8 g/dL (33-36.5) L Red Cell Distribution Width 13.6 % (11.5-14.5) Platelet Count 345 10^3/uL (150-400) Mean Platelet Volume 9.8 fL (7.8-11.0) Neutrophils (%) (Auto) 66.4 % (41.0-85.0) Lymphocytes (%) (Auto) 27.2 % (24.0-44.0) Monocytes (%) (Auto) 4.8 % (5.0-12.0) L Neutrophils # (Auto) 8.8 10^3/uL (1.8-7.7) H Lymphocytes # (Auto) 3.61 10^3/uL1 (1.0-4.8) Monocytes # (Auto) 0.6 10^3/uL (0.3-0.8) Absolute Immature Granulocyte (auto 0.02 10^3 u/L (0-2) Absolute Eosinophils (auto) 0.2 10^3/uL (0.0-0.2) Immature Granulocytes % 0.20 % (0.00-0.50) Eosinophils % 1.1 % (0.0-5.0) Basophils % 0.3 % (0.0-0.2) H Basophils # 0.0 10^3/uL (0.0-0.1) Prothrombin Time 10.4 SEC (9.6-12.0) Prothrombin Time INR (Non-Therap) 1.0 Activated Partial Thromboplast Time 24.8 SEC (24.67-30.72) Sodium Level 135 mmol/L (132-145) Potassium Level 4.0 mmol/L (3.6-5.2) Chloride Level 102.0 mmol/L (96-109) Carbon Dioxide Level 27.8 mmol/L (20.0-32) Anion Gap 9.2 Blood Urea Nitrogen 13 mg/dL (7-18) Creatinine 0.70 mg/dL (0.59-1.40) Estimated GFR () 112.7 (>/=60) Est GFR (CKD-EPI)(Non-Afr Cameroonian) 93.2 (>/=60) BUN/Creatinine Ratio 18.0 Glucose Level 181 mg/dL (70-110) H Calcium Level 8.7 mg/dL (8.4-10.5) Total Bilirubin 0.3 mg/dL (0.2-1.0) Aspartate Amino Transferase (AST) 40 U/L (0-35) H Alanine Aminotransferase (ALT) 73 U/L (12-78) Alkaline Phosphatase 105 U/L (50-136) Total Protein 7.4 g/dL (6.4-8.2) Albumin 3.1 g/dL (3.4-5.0) L Globulin 4.3 Albumin/Globulin Ratio 0.720 Amylase Level 37 U/L (25-115) Lipase 88 U/L (114-286) L Serum HCG, Qualitative NEGATIVE (NEGATIVE) Helicobacter pylori Screen NEGATIVE (NEGATIVE) Progress Progress Patient CT scan only shows a right ovarian cyst that measures approximately 4.7 cm. She does have a slight white count of 13. The patient's abdominal pain is more right mid quadrant on exam. She does not have any pelvic pain or lower abdominal pain however due to the size of her ovarian cysts and the persistent pain she is having on the right side of her abdomen I have ordered ultrasound to rule out ovarian torsion. Patient is aware of her lab and CT results thus far and is agreeable with ultrasound. Ultrasound shows hemorrhagic cyst on the right with the ovary measuring slightly more than 5 cm overall. There was flow to the ovary. Patient is aware of her laboratory and CT and ultrasound results. I have answered all of her questions regarding hemorrhagic cysts as well as potential complications due to the size of her cyst. Reexamination of her abdomen shows her abdomen is soft no distention mild tenderness with deep palpation in her right mid quadrant. No CVA tenderness no rebound or guarding. Patient is being discharged home however she has been given very in depth and strict return precautions including severe pain, pain that is unrelenting, nausea vomiting, fever, vaginal bleeding and other worsening symptom. I explained to the patient that due to the size of her ovary she is at risk for ovarian torsion which can cause her to lose her ovary due to lack of blood flow. I also explained that it is possible to have significant bleeding from a hemorrhagic cyst so if she begins to feel lightheaded again has worsening severe pain she should return to the emergency department immediately. Patient was given a prescription for [place]. The pain medicine given in the emergency department helped slightly however I was unable to give stronger medications due to the fact the patient is driving herself. She states she did not have anyone that can come pick her up. Patient is stable at this time and comfortable with being discharged home. She is verbalized understanding and agreement with all of the discharge instructions and return precautions provided. ER DEPART Departure Time of Disposition: 01:00 Disposition: 01 HOME / SELF CARE / HOMELESS Impression: Primary Impression: Hemorrhagic cyst of right ovary Condition: Stable Referrals: PCP,UNKNOWN (PCP) PRIMARY CARE PROVIDER Duration or Time Spent with Pa: 15 Return to Work/School Can a patient return to work?: Yes Can a patient return to school: Yes SANTI CHAND MD Feb 13, 2021 22:38
--- NOTE | 2021-02-13 22:45 | DIREP ---
PROCEDURE:CT ABDOMEN/PELVIS W/ CONTRAST COMPARISON:None. INDICATIONS:ruq pain TECHNIQUE:Axial images were created through the abdomen and pelvis with non-ionic intravenous contrast material. No oral contrast was administered. Sagittal and coronal reconstructions were performed from source images. FINDINGS: LUNG BASES:Normal. No visible pulmonary or pleural disease. LIVER:Normal. No significant liver lesions are identified. BILIARY:The gallbladder is surgically absent. There is no biliary ductal dilatation. PANCREAS:Normal. No lesion, fluid collection, ductal dilatation, or atrophy. SPLEEN:Normal. No enlargement or focal lesion. ADRENALS:Normal. No mass or enlargement. URINARY TRACT:Normal. No focal lesions or hydronephrosis. AORTA/VASCULAR:Normal. No aneurysm. RETROPERITONEUM:Normal. No mass or adenopathy. BOWEL/MESENTERY:The appendix is visualized and appears normal. There is no intestinal obstruction, free fluid, free air or mesenteric inflammatory changes. ABDOMINAL WALL:Small umbilical hernia containing only fat. PELVIC ORGANS:4.1 x 3.7 cm cyst in the right ovary. Otherwise normal. BONES:Normal for age. No bony lesion or acute fracture. OTHER:Negative. CONCLUSION: 1. No acute abdomen/pelvis abnormalities. 2. Right ovarian cyst. 3. Small fat containing umbilical hernia. 4. Prior cholecystectomy. Dictated by: Reyes Del Rio M.D. on 02/13/2021 at 10:38 PM
--- NOTE | 2021-02-13 23:00 | NUR ---
[employer] MA[employer] AWARE OF ORDER ULTRASOUND AT THIS TIME
--- NOTE | 2021-02-14 00:30 | DIREP ---
PROCEDURE:US PELVIC FOLLOWED BY TRANSVAGINAL COMPARISON:[facility], CT, CT ABD/PELVIS W/ CONTRAST, 02/13/2021, 10:23 PM. INDICATIONS:rt ovarian cyst/ torsion, RLQ PAIN X5D TECHNIQUE:Pelvic ultrasound using transabdominal technique. Endovaginal images were also obtained for better assessment of the uterus and adnexa. FINDINGS: UTERUS:Size is 8.3 x 4.5 x 6.0 cm. The myometrium is homogeneous. ENDOMETRIUM:Thickness is 1.2 mm. RIGHT OVARY:Enlarged with hemorrhagic cyst measuring 4.3 x 3.7 x 3.2 cm. 5.3 x 4.0 x 4.5 cm. LEFT OVARY:Normal appearance. 3.1 x 1.2 x 2.5 cm. CUL-DE-SAC:Trace free fluid. OTHER:Negative. CONCLUSION:Doppler flow is seen to both ovaries however the right ovary is enlarged due to a large right hemorrhagic cyst. Ovarian enlargement can increase the risk for or can be an early sign of torsion, repeat ultrasound can be performed as needed. Trace free fluid. Correlate with physical exam. This report was called by telephone at 12:28 am on February 14, 2021 to Louann Welsh . Dictated by: Medardo Kan MD on 02/14/2021 at 00:19 AM
[2021-02-14 00:39] VITALS: BP 114/72
== END 2021-02-14 01:10 | disposition home or self-care (01) ==
LOC: ER 17:43
DX: N83.201 Unspecified ovarian cyst, right side (principal); Z79.1 Long term (current) use of non-steroidal anti-inflammatories (NSAID); Z79.899 Other long term (current) drug therapy; Z90.49 Acquired absence of other specified parts of digestive tract
CPT/HCPCS: 36415; 74177; 76830; 76856; 80053; 81003; 82150; 83690; 84703; 85025; 85610; 85730; 86677; 96374; 99285; J1885; Q9965

== ENCOUNTER 2021-09-04 17:09 | Emergency (ER) | payer OTHER ==
[~2021-09-04] VITALS: Ht 157.5 cm; Wt 104.3 kg
[2021-09-04 17:16] VITALS: BP 131/54
--- NOTE | 2021-09-04 18:23 | NUR ---
COVID NEGATIVE, EDP NOTIFIED.
--- NOTE | 2021-09-04 18:29 | NUR ---
REPORT REPORT GIVEN TO ONCOMING SHIFT.
--- NOTE | 2021-09-04 18:35 | ER.PDOC ---
General Chief Complaint: Cough/Congestion Stated Complaint: SORE THROAT,COUGH,FATIGUE Time seen by MD: 18:35 Source: patient Exam Limitations: no limitations History of Present Illness Initial Comments Pt presents c/o worsening cough x 5 days and a headache since she had a Penicillin injection 2 days ago for a strep infection. Denies any fever, but admits chest pain with cough. Severity: moderate Associated Symptoms: other (headache, chest pain with cough.) Identified Cause: no Exposure: antibiotic Prior symptoms/Treatment: Treated by Doctor (2 days ago for a strep infection) Allergies: Uncoded Allergies: STRAWBERRIES (Allergy, Mild, HIVES, 10/26/15) Home Meds Reported Medications Metoprolol Succinate (METOPROLOL SUCCINATE) 25 Mg Tab.er.24h, 0.5 TAB PO DAILY, #30 TAB 5 Refills 05/26/19 Vital Signs First Vital Signs Date Time Temp Pulse Resp B/P (MAP) Pulse Ox O2 Delivery O2 Flow Rate FiO2 09/04/21 17:16 98.4 87 18 97 09/04/21 17:16 131/54 (79) Room Air* 0 21 Last Vital Signs Date Time Temp Pulse Resp B/P (MAP) Pulse Ox O2 Delivery O2 Flow Rate FiO2 09/04/21 21:43 98.4 93 18 122/67 (85) 99 Room Air* 0 21 Past Medical History Medical History: arrhythmia, other Surgical History: cholecystectomy, Social History Alcohol Use: none Drug Use: none Constitutional: denies chills, denies diaphoresis, denies fever; malaise EENTM: denies ear pain, denies nose congestion, denies throat swelling, denies mouth pain Respiratory: cough; denies orthopnea, denies shortness of breath, denies SOB w ith exertion Cardiovascular: chest pain (with cough) Gastrointestinal: denies abdomen distended, denies abdominal pain, denies blood streaked bowels Genitourinary: denies discharge Skin: denies change in color Psychiatric/Neurological: headache All Other Systems: Reviewed and Negative Physical Exam General Appearance: alert, no distress HEENT: ENT nml inspection, pharynx, voice nml Skin: no rash, nml color, warm/dry Extremities: non-tender, nml ROM, no edema Neck: nml inspection Respiratory: no resp. distress, breath sounds nml CVS: reg. rate & rhythm, heart sounds nml Abdomen: non-tender, no organomegaly NEURO/PSYCH: oriented x 3, CN's nml as tested, motor nml, sensation nml, mood/affect nml Results/Orders Results/Orders Orders - BRADEN DAHL MD Influenza A&B (09/04/21 18:06) Covid19 Antigen Enriqueta Niharika (09/04/21 18:06) Xr Chest 2v (09/04/21 18:36) Hcg Urine (09/04/21 19:00) Urinalysis (09/04/21 19:00) Acetaminophen (Tylenol) (09/04/21 20:25) Benzonatate (Tessalon Perle) (09/04/21 20:25) Blood Glucose Assessment (09/04/21 20:25) Acetaminophen (Tylenol) (09/04/21 20:31) Benzonatate (Tessalon Perle) (09/04/21 20:31) Vital Signs Date Time Temp Pulse Resp B/P (MAP) Pulse Ox O2 Delivery O2 Flow Rate FiO2 09/04/21 21:43 98.4 93 18 122/67 (85) 99 Room Air* 0 21 09/04/21 17:16 98.4 87 18 131/54 (79) 97 Room Air* 0 21 09/04/21 17:16 98.4 87 18 09/04/21 17:16 98.4 87 18 97 Administered Medications Medications (Trade) Dose Ordered Sig/Eugene Route PRN Reason Start Time Stop Time Status Last Admin Dose Admin Acetaminophen (Tylenol) 1,000 mg STAT STAT PO 09/04/21 20:25 09/04/21 20:27 DC 09/04/21 20:33 1,000 MG Benzonatate (Tessalon Perle) 200 mg STAT STAT PO 09/04/21 20:25 09/04/21 20:27 DC 09/04/21 20:33 200 MG Laboratory Tests Test 09/04/21 18:02 09/04/21 19:03 09/04/21 21:06 Influenza Type A Antigen NEGATIVE (NEG) Influenza Type B Antigen NEGATIVE (NEG) SARS-CoV-2 Antigen (Rapid) NEGATIVE (NEGATIVE) Urine Collection Type RANDOM Urine Color YELLOW Urine Appearance CLEAR Urine Bilirubin NEGATIVE (NEGATIVE) Urine Ketones 1+ (NEGATIVE) H Urine Specific [place] 1.025 (1.005-1.030) Urine pH 5.5 (4.5-8.0) Urine Protein NEGATIVE (NEGATIVE) Urine Urobilinogen 0.2 E.U./dL (0.2) Urine Nitrate NEGATIVE (NEGATIVE) Urine Leukocyte Esterase NEGATIVE (NEGATIVE) Urine Glucose (Auto)(UA) NEGATIVE (NEGATIVE) Urine Blood TRACE-INTACT (NEGATIVE) H Urine RBC 0-2 RBC/HPF (NONE SEEN) Urine WBC NONE SEEN WBC/HPF (0-2) Urine Squamous Epithelial Cells FEW (<=FEW) Urine Bacteria NONE SEEN (NONE SEEN) Urine HCG, Qualitative NEGATIVE (NEGATIVE) POC Glucose 106 (70 - 110) ER DEPART Departure Time of Disposition: 21:22 Disposition: 01 HOME / SELF CARE / HOMELESS Impression: Primary Impression: Cough headache syndrome Condition: Stable Patient Instructions: Cough, Adult, [id number] Referrals: PCP,UNKNOWN (PCP) PRIMARY CARE PROVIDER Additional Instructions: fever and pain precautions advised. Tessalon pearls as prescribed. Duration or Time Spent with Pa: 25mins Return to Work/School Can a patient return to work?: Yes BRADEN DAHL MD September 04, 2021 18:35
[2021-09-04 19:14] LABS: BILIRUBIN,URINE NEGATIVE (NEGATIVE)
[2021-09-04 19:15] LABS: UROBILINOGEN,URINE 0.2 E.U./dL (0.2)
--- NOTE | 2021-09-04 19:35 | NUR ---
XRAY XRAY COMPLETE. RETURN TO UNIT VIA W/C.
--- NOTE | 2021-09-04 19:42 | DIREP ---
PROCEDURE:CHEST 2 VIEWS COMPARISON:[facility], CR, XRAY CHEST SINGLE VW, 10/08/2019, 12:06 PM. [facility], CR, XRAY CHEST SINGLE VW, 05/06/2019, 09:33 AM. INDICATIONS:cough and chest pain FINDINGS: LUNGS/PLEURA:No significant pulmonary parenchymal abnormalities. No effusions. No pneumothorax VASCULATURE:Normal. Unremarkable pulmonary vasculature. CARDIAC:Normal. No cardiac silhouette abnormality or cardiomegaly. MEDIASTINUM:Normal. No visible mass or adenopathy. BONES:Normal. No fracture or visible bony lesion. OTHER:Negative. CONCLUSION:Normal examination. There is no significant change as compared with the previous examination. Dictated by: Giuliano Tony MD on 09/04/2021 at 07:40 PM
[2021-09-04] MEDS ORDERED: TYLENOL PO ONE (20:31)
[2021-09-04] MEDS ORDERED: TESSALON PERLE PO ONE (20:31)
[2021-09-04] MEDS: TESSALON PERLE PO STA (20:33)
[2021-09-04] MEDS: TYLENOL PO STA (20:33)
[2021-09-04 21:43] VITALS: BP 122/67
== END 2021-09-04 21:43 | disposition home or self-care (01) ==
LOC: ER 17:09
DX: G44.89 Other headache syndrome (principal); I49.9 Cardiac arrhythmia, unspecified; R05.9 Cough, unspecified; Z90.49 Acquired absence of other specified parts of digestive tract; Z20.822 Contact with and (suspected) exposure to COVID-19
CPT/HCPCS: 71046; 81001; 81025; 82948; 87426; 87804 ×2; 99284; A9150

== ENCOUNTER 2021-11-25 05:59 | Emergency (ER) | payer SELFPAY ==
[~2021-11-25] VITALS: Ht 157.5 cm; Wt 99.8 kg
[2021-11-25 05:59] VITALS: BP 139/78
--- NOTE | 2021-11-25 06:03 | NUR ---
ARRIVAL ARRIVED VIA EMS. ALERT AND ORIENTED X3. GCS-15. 97% ON RA. RR-20. FACIAL SWELLING AFTER EATING SUNFLOWER SEEDS. STARTED APPROXIATELY AT 5PM. WENT TO SLEEP AND WOKE THIS AM WITH INCREASED FACIAL SWELLING, TONGUE SWELLING, AND DIZZINESS. EMS GAVE BENADRYL 50MG IV AND SOLUMEDROL 125MG IV IN ROUTE FROM [place]. GCS-15. ALERT AND ORIENTED 97% ON ROOM AIR AT THIS TIME. PT STATES" I AM FEELING MUCH BETTER NOW THAT I GOT ALL THOSE MEDICATIONS ON THE AMBULANCE. I THINK THE SWELLING IS GOING DOWN." DR. DELGADILLO AT BEDSIDE.
--- NOTE | 2021-11-25 06:30 | ER.PDOC ---
General Chief Complaint: Allergic Reaction Stated Complaint: ALLERGIC REACTION Time seen by MD: 06:26 Source: patient Exam Limitations: no limitations History of Present Illness Initial Comments 41F via EMS with Allergy reaction face swelling. Pt thinks she ate sunflower seeds that might have caused this. ate at 5pm. called poison control and then EMS due to face and tongue swelling. Received Benadryl 50 mg and Solumedrol 125 IV enroute. ON presenting in ER pt is alert, verbalizing. No resp compromise. Hx Ankylosing Spondylitis with POTS disease. On Zoloft and Propranolol. Severity: mild Associated Symptoms: itching, facial swelling, tongue swollen Identified Cause: possibly Exposure: other Allergies: Uncoded Allergies: STRAWBERRIES (Allergy, Mild, HIVES, 10/26/15) Home Meds Reported Medications Metoprolol Succinate (METOPROLOL SUCCINATE) 25 Mg Tab.er.24h, 0.5 TAB PO DAILY, #30 TAB 5 Refills 05/26/19 Vital Signs First Vital Signs Date Time Temp Pulse Resp B/P (MAP) Pulse Ox O2 Delivery O2 Flow Rate FiO2 11/25/21 05:59 97.9 80 20 97 11/25/21 05:59 139/78 (98) Room Air* 0 21 Last Vital Signs Date Time Temp Pulse Resp B/P (MAP) Pulse Ox O2 Delivery O2 Flow Rate FiO2 11/25/21 05:59 97.9 80 20 139/78 (98) 97 Room Air* 0 21 Past Medical History Medical History: no pertinent history, other Surgical History: cholecystectomy, Family History Significant Family History: no pertinent family hx Social History Smoking: non-smoker Alcohol Use: none Drug Use: none All Other Systems: Reviewed and Negative Physical Exam General Appearance: mild distress HEENT: ENT nml inspection, pharynx Skin: no rash, nml color, warm/dry Extremities: non-tender, nml ROM Neck: nml inspection Respiratory: no resp. distress CVS: reg. rate & rhythm Abdomen: non-tender, no organomegaly NEURO/PSYCH: oriented x 3, CN's nml as tested Results/Orders Results/Orders Vital Signs Date Time Temp Pulse Resp B/P (MAP) Pulse Ox O2 Delivery O2 Flow Rate FiO2 11/25/21 05:59 97.9 80 20 139/78 (98) 97 Room Air* 0 21 11/25/21 05:59 97.9 80 20 11/25/21 05:59 97.9 80 20 97 Progress Progress Pt reports breathing well. face swelling has remarkably improved and feels well to go home A - Allergic Reaction - sunflower seeds, Angioedema. Rx medrol dosepak P - d/c home. f/u PCP for allergy testing ER DEPART Departure Time of Disposition: 06:40 Disposition: 01 HOME / SELF CARE / HOMELESS Impression: Primary Impression: Food allergy Additional Impression: Angioedema Condition: Stable Patient Instructions: Food Allergy and Anaphylaxis Referrals: PCP,UNKNOWN (PCP) PRIMARY CARE PROVIDER Duration or Time Spent with Pa: 60 Return to Work/School Can a patient return to work?: Yes Can a patient return to school: Yes Problem Qualifiers JAMIE DELGADILLO MD Nov 25, 2021 06:30
== END 2021-11-25 06:50 | disposition home or self-care (01) ==
LOC: ER 05:59 → EDBD 05:59 → ER 06:50
DX: T78.05XA Anaphylactic reaction due to tree nuts and seeds, initial encounter (principal); T78.3XXA Angioneurotic edema, initial encounter; X58.XXXA Exposure to other specified factors, initial encounter; M45.9 Ankylosing spondylitis of unspecified sites in spine; Z90.49 Acquired absence of other specified parts of digestive tract
CPT/HCPCS: 99284